=== PATIENT | female | born 1960 | race Caucasian/White ===

== ENCOUNTER 2017-11-19 09:52 | Day surgery (SDC) | payer OTHER ==
[2017-11-19] MEDS ORDERED: PROPOFOL 60 ML (10:50)
[2017-11-19] MEDS ORDERED: LIDOCAINE 2% (SDV) 5 ML INJ (10:50)
== END 2017-11-19 12:40 | disposition home or self-care (01) ==
LOC: GIL 09:52
DX: K92.1 Melena (principal); K57.90 Diverticulosis of intestine, part unspecified, without perforation or abscess without bleeding; K44.9 Diaphragmatic hernia without obstruction or gangrene; K64.8 Other hemorrhoids; K21.9 Gastro-esophageal reflux disease without esophagitis; K29.70 Gastritis, unspecified, without bleeding
CPT/HCPCS: 43239; 87081